=== PATIENT | female | born 2005 | race African-American/Black ===

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

== ENCOUNTER 2025-01-07 09:41 | Outpatient (CLI) | payer BC, SELFPAY ==
--- OUTSIDE RECORDS SUMMARY | 2025-01-07 08:30 | XMS_ITS | Encounter Summary ---
Author Organization [facility] Address [address] [place] [address] Care Team Providers Care Hospice Spiritual Care Coordinator Name Role Phone Martin Valle MD Primary Care Provider [phone] Reason for Visit * Reason Comments Establish Care Encounter Details Date Type Department Care Team (Late st Contact Info) Description 01/07/2025 8:30 AM CDT Office Visit [facility] Oncology and Hematology - [place] [address] [facility] [address] [place] [address] Hunter Paul MD [address] [facility] [address] [place] [address] Chronic anemia (Primary Dx) Social History Tobacco Use Types Packs/Day Years Used Date Smoking Tobacco: Never Smokeless Tobacco: Never Tobacco Cessation:Counseling Given: Not Answered Alcohol Use Standard Drinks/Week Comments Never 0 (1 standard drink = 0.6 oz pur e alcohol) Comments Unknown Sex and Gender Information Value Date Recorded Sex Assigned at Not on file Legal Sex Female 3:32 PM CDT Gender Identity Not on file Sexual Orientation Not on file documented as of this encounter Last Filed Vital Signs Vital Sign Reading Time Taken Comments Blood Pressure 127/87 01/07/2025 9:08 AM CDT Pulse 81 01/07/2025 9:08 AM CDT Temperature 37.3 C (99.1 F) 01/07/2025 9:08 AM CDT Respiratory Rate 12 01/07/2025 9:08 AM CDT Oxygen Saturation 100% 01/07/2025 9:08 AM CDT Inhaled Oxygen Concentration - - Weight 50 kg (110 lb 3.2 oz) 01/07/2025 9:08 AM CDT Height 160 cm (5' 3) 01/07/2025 9:08 AM CDT Body Mass Index 19.52 01/07/2025 9:08 AM CDT documented in this encounter Progress Notes * Hunter Paul MD - 01/07/2025 9:25 AM CDT ThisHematology-oncology consult Note Requesting Physician Primary Care Physician No primary care provider on file. Problem list There is no problem list on file for this patient. Previous TREATMENT ? Measurable Disease ? Reason for Visit Yamilet Boothe is a 19 y.o. female who was referred for consultation for iron deficiency anemia. History of present illness This is a 19-year-old -Luxembourger female who has been in good health levels and anxiety has been dealing with anemia for the last 2 years duration. She is been complaining of tiredness and fatigue. Denies any bleeding including melena and hematochezia. Her menstrual bleeding used to last 5 days and 3 days of but generally heavy. She started oral contraceptive and recently the brand was changed to stop menstrual bleeding. Her last menses was on November 17. She is also following gluten-free diet. She denies being a vegetarian and eats red meat regularly. Her last colonoscopy was in April2024 and came back unremarkable. She took oral iron for 1 month duration and discontinued about a month ago as it was not helping her. She has a family history of sickle cell disease in the aunt No other new complaints. Past Medical History No past medical history on file. Anxiety Surgical History Past Surgical History: Procedure Laterality Date HX COLONOSCOPY Medications Current Outpatient Medications Medication Sig Dispense Refill amitriptyline (ELAVIL) 10 mg tablet Take 10 mg by mouth daily at bedtime. Levonorgestrel-Ethinyl Estrad 0.15 mg-30 mcg (91) Tablet, Dose Pack, 3 Months Take 1 Tablet by mouth daily. No current facility-administered medications for this visit. Allergies Allergies Allergen Reactions Codeine Anaphylaxis and Swelling Lip swelling Immunizations: There is no immunization history on file for this patient. Family History Family History Problem Relation Name Age of Onset No Known Problems Father Diabetes Mother No Known Problems Brother No Known Problems Sister Social History Social History Tobacco Use Smoking status: Never Smokeless tobacco: Never Substance Use Topics Alcohol use: Never Review of Systems Constitutional: Patient did not mention fever; no night sweats; no anorexia; no weight loss; complain of tiredness and fatigue NEENT: Patient did not mention headache; no change in vision; no change in hearing; no sore throat;no dysphagia Respiratory: Patient did not mention shortness of breath; no pleuritic chest pain; no cough; no hemoptysis Cardiac: Patient did not mention cardiac-like chest pain; no palpitations; no orthopnea; no PND; noDOE Breasts: Patient did not mention tenderness; no masses GI: Patient did not mention abdominal pain; no nausea; no vomiting; no diarrhea; no hematochezia; no melena : Patient did not mention dysuria; no frequency; no hesitancy; no hematuria DOORMAKER: Musculosketetal: Patient did not mention bone pain; no arthralgia; no joint swelling; no myalgia; Skin: Patient did not mention pruritis; no rash; no petechiae; no ecchymoses Endocrine: Patient did not mention polydipsia; no polyuria; no unusual weight gain Neuro: Patient did not mention headache; no change in vision; no sensory changes; no muscle weakness; no confusion; no seizures Psych: Patient did not mention anxiety; no depression; Physical Exam Vitals: As per nursing note Constitutional: Well developed, well nourished, no acute distress, non-toxic appearance Teeth and gum. No signs of infection or swelling. Eyes: PERRL, conjunctiva normal HEENT: Atraumatic, external ears normal, nose normal, oropharynx moist, no pharyngeal exudates. no sinus tenderness Neck- normal range of motion, no tenderness, supple Respiratory: No respiratory distress, normal breath sounds, no rales, no wheezing Cardiovascular: Normal rate, normal rhythm, no murmurs, no gallops, no rubs GI: Soft, nondistended, normal bowel sounds, nontender, no splenomegaly, no hepatomegaly, no mass, no rebound, no guarding : No costovertebral angle tenderness Musculoskeletal: No edema, no tenderness, no deformities. Back- no tenderness Integument: Well hydrated, no rash, Digits and nails inspection normal Lymphatic: No lymphadenopathy noted Neurologic: Alert & oriented x 3, CN 2-12 normal, normal motor function, normal sensory function, no focal deficits noted Psychiatric: Speech and behavior appropriate ? labs No results found for this or any previous visit (from the past 24 hours). Labs from December 16, 2024 showed iron 34 saturation of iron 8 ferritin 8 hemoglobin 11.7 MCV 82.6 WBC 8.3 platelets 371,000 Pathology ? Imaging & Other Studies Performance Status? Assessment / Plan: ? Iron deficiency anemia. Patient is a 19-year-old -Luxembourger female who has been in good health except anxiety disorder referred to me for anemia that she has been dealing for the last couple ofyears duration. She is quite symptomatic with tiredness and fatigue. She denies any bleeding including melena and hematochezia. She used to have heavy menstrual bleeding for about 5 days duration butthe last menses was in October. She started control pills for menstrual cessation. She denies being a vegetarian. Denies any previous stomach surgeries. She took oral iron for 1 month duration but discontinued about a month ago as it was not helping her symptoms. I will repeat the labs including CBC, CMP, iron profile, soluble transferrin receptor, vitamin B12 and methylmalonic acid level. Iwill also order hemoglobin electrophoresis for sickle cell anemia. Patient gave me the history of sickle cell disease in her aunt. I will discuss results with her next week. Will decide about iron infusion at that time. I instructed her to take iron 325 mg once a day with vitamin C 500 mg daily. I have answered all the questions the patient satisfaction. Anxiety. Patient is on amitriptyline. Thank you very much for allowing me to participate in Yamilet Boothe's evaluation and management. Please feel free to contact if I can be of any further assistance in your patient???s care requiring hematology or oncology evaluation. Sincerely, ? ? Hunter Paul M.D. cell TOBACCO COUNSELING She is not a tobacco/nicotine user. Hunter Paul MD ,01/07/2025 9:58 AM ? Total time spent 60 minutes, two third of the total time spent counseling patient [id number]. CC:? documented in this encounter Plan of Treatment Upcoming Encounters Date Type Department Care Team (Late st Contact Info) Description 01/14/2025 4:30 PM CDT Telephone Check Up [facility] Oncology and Hematology - [place] [address] [facility] [address] [place] [address] Hunter Paul MD [address] [facility] [address] [place] [address] Scheduled Orders Name Type Priority Associated Diagnoses Orde r Schedule CBC WITH DIFFERENTIAL Lab Stat Chronic anemia Expected: 01/07/2025, Expires: 01/07/2026 COMPREHENSIVE METABOLIC PANEL Lab Stat Chronic anemia Expected: 01/07/2025, Expires: 01/07/2026 FERRITIN Lab Routine Chronic anemia Expected: 01/07/2025, Expires: 01/07/2026 IRON, TIBC, AND PERCENT SATURATION Lab Routine Chronic anemia Expected: 01/07/2025, Expires: 01/07/2026 TRANSFERRIN RECEPTOR TFR SOLUBLE Lab Routine Chronic anemia Expected: 01/07/2025, Expires: 01/07/2026 VITAMIN B12 AND FOLATE Lab Routine Chronic anemia Expected: 01/07/2025, Expires: 01/07/2026 MISCELLANEOUS LAB TEST Lab Routine Chronic anemia Expected: 01/07/2025, Expires: 01/07/2026 documented as of this encounter Visit Diagnoses Diagnosis Chronic anemia- Primary Anemia, unspecified documented in this encounter Care Teams Hospice Spiritual Care Coordinator Relationship Specialty Start Date End Date Martin Valle MD [address] [place] [phone] PCP - General Family Practice 01/07/25 documented as of this encounter
[2025-01-07 09:55] LABS: Hematocrit 39.7 % (37.0-47.0); Hemoglobin 12.6 g/dL (12.0-15.0); Immature Granulocyte Percent A 0.4 % (0-0.5); Lymphocytes Absolute Auto 2.20 K/mm3 (0.9-3.2); Mean Corpuscular HGB Conc 31.7 g/dl (32-36); Mean Corpuscular Hemoglobin 24.8 pg (26-34); Mean Corpuscular Volume 78.0 fl (80-100); Nucleated Red Blood Cells Absolute Auto 0.000 K/mm3 (0.0-0.012); Nucleated Red Blood Cells Perc 0.0 % (0.0-0.2); Platelet Count Result 375 k/mm3 (150-375); Red Blood Count 5.09 M/mm3 (4.2-5.4); White Blood Count 13.6 K/mm3 (4.5-10.0)
[2025-01-07 10:38] LABS: Alanine Aminotransferase 37 U/L (6-35); Albumin Level 4.4 g/dL (3.7-5.6); Alkaline Phosphatase 56 U/L (45-116); Anion Gap 10 mmol/L (4-12); Aspartate Amino Transferase 36 U/L (14-36); Bilirubin,Total 0.3 mg/dL (0.2-1.3); Blood Urea Nitrogen 6 mg/dL (8-21); Calcium 9.1 mg/dL (8.9-10.7); Carbon Dioxide 25 mmol/L (22-30); Chloride 101 mmol/L (98-107); Estimated Glomerular Filt Rate > 60; Glucose 87 mg/dL (65-110); Potassium 4.2 mmol/L (3.4-5.0); Sodium 136 mmol/L (134-143); Total Protein 7.7 g/dL (6.3-8.6)
[2025-01-07 10:55] LABS: Iron 39 ug/dL (37-170)
--- OUTSIDE RECORDS SUMMARY | 2025-01-07 10:56 | XMS_ITS | Clinical Summary ---
Author Organization [facility] Address [address] [place] [address] Care Team Providers Care Industrial Truck Operator Name Role Phone Martin Valle MD Primary Care Provider + [phone] Allergies Active Allergy Reactions Criticality Noted Date [...] 05/13/2024 Assessment & Plan (05/13/2024 2:56 PM CASH APPLICATIONS CLERK): Lm is a 19 old female with [...] consult Assessment & Plan (05/13/2024 4:17 AM CASH APPLICATIONS CLERK): Lm is a 19 old female with [...] 05/13/2024 Assessment & Plan (05/13/2024 2:53 PM CASH APPLICATIONS CLERK): Yamilet is at moderate risk for VTE due to her control usage. Plan: - Ambulate TID - Consider SCD placement if unable to ambulate Assessment & Plan (05/13/2024 4:17 AM CASH APPLICATIONS CLERK): Yamilet is at moderate risk for VTE due to her control usage. Plan: - Ambulate TID - Consider SCD placement if unable to ambulate Bloody diarrhea 05/13/2024 Iron deficiency anemia 02/02/2023 Assessment & Plan (02/02/2023 10:27 AM CASH APPLICATIONS CLERK): Yamilet is a 17 year old female [...] 02/02/2023 Assessment & Plan (02/02/2023 10:28 AM CASH APPLICATIONS CLERK): Given history of menorrhagia we performed a [...] History Growth Chart Information Age Height Weight [id number] th Percentile BMI Percentile Head Circum Head Circum Percentile Date 19 years 51.2 kg (112 lb 14 oz) 2024 19 years 161.5 cm (5' 3.58) 49.8 kg (109 lb 12.6 oz) 17.12%* 2024 19 years 49.4 kg (108 lb 14.5 oz) 2024 17 years 157.4 cm (5' 1.97) 47.8 kg (105 lb 6.1 oz) 23.78%* 2022 * [facility] (Girls, 2-20 Years) Last Filed Vital Signs Vital Sign Reading Time Taken Comments Blood Pressure 105/72 05/14/2024 11:55 AM CASH APPLICATIONS CLERK Pulse 90 05/14/2024 11:55 AM CASH APPLICATIONS CLERK Temperature 36.7 C (98.1 F) 05/14/2024 11:55 AM CASH APPLICATIONS CLERK Respiratory Rate 18 05/14/2024 11:55 AM CASH APPLICATIONS CLERK Oxygen Saturation 100% 05/14/2024 11:55 AM CASH APPLICATIONS CLERK Inhaled Oxygen Concentration - - Weight 51.2 kg (112 lb 14 oz) 05/14/2024 8:20 AM CASH APPLICATIONS CLERK Height 161.5 cm (5' 3.58) 05/13/2024 1:50 AM CS T Body Mass Index 19.63 05/13/2024 1:50 AM CASH APPLICATIONS CLERK Plan of Treatment Health Maintenance Due Date [...] 01/15/2020 Meningococcal Vaccine Completed 12/08/2022, 020 Insurance [facility] [employer] [facility] [employer] Advance Directives For more information, please contact: [phone] * Full Code (Latest Code Status on File) Date Activated Date Inactivated Comments 05/13/2024 2:14 AM 05/14/2024 4:45 PM Care Teams Industrial Truck Operator Relationship Specialty Start Date End Date Martin Valle MD [address] [place] [address] PCP - General Family Medicine 01/05/23
--- OUTSIDE RECORDS SUMMARY | 2025-01-07 10:56 | XMS_ITS | Patient Health Record ---
Author Organization [facility] Address [address] [place] [phone] Support Name Relationship Address Phone Karla Hernández Guarantor Unknown Reason For Referral No Information Medications Medication SIG (Take, Route, Frequency, Duration) Notes Start Date End Date Status ZyrTEC Allergy 10 MG Tablet take 1 tablet (10 mg) by oral route once daily Oral 1 11/14/2015 Active Flonase Allergy Relief 50 MCG/ACT Suspension inhale 1 spray (50 mcg) in each nostril by intranasal route once daily Nasal 1 11/14/2015 Active Social History Social History Additional Details Category Social Info Options Details Migrated Social History Migrated Social History Marital Status :: Single Occupation :: Student Substance Use :: No alcohol use :: Never smoker Substance Use :: No illegal drug use :: Never smoker Substance Use :: Nonsmoker :: Never smoker Substance Use :: Tobacco :: Never smoker Problems Problem Type SNOMED Code ICD Code Onset Dates Problem Status W/U Status Risk Notes Problem Seasonal allergy (520763080) Seasonal Allergies (J30.2) Active confirmed [id number] Plan Of Treatment No Information Insurance Providers Payer Name Payer Address Payer Phone Subscriber Number Group Number Insured Name Patient Relationship to Insured Coverage Start Date Coverage End Date [facility] [address] [place] [address] [id number] Jamie Boothe Other BCBS [facility] [address] [place], [place] [phone] [id number] Karla Hernández Other Medical (General) History Surgical History Surgery Date(Month/Year) *No Previous Surgical History;
--- OUTSIDE RECORDS SUMMARY | 2025-01-07 10:57 | XMS_ITS | Clinical Summary ---
Author Organization [facility] Address [address] [place] [address] Care Team Providers Care Lime Boiler Name Role Phone Martin Valle MD Primary Care Provider [phone] Allergies Active Allergy Reactions Criticality Noted Date Comments Codeine Anaphylaxis High 03/17/2024 Social History Tobacco Use Types Packs/Day Years Used Date Smoking Tobacco: Never Assessed Comments No Sex and Gender Information Value Date Recorded Sex Assigned at Not on file Legal Sex Female 4:22 PM MARKETING OFFICER Gender Identity Not on file Sexual Orientation Not on file Last Filed Vital Signs Vital Sign Reading Time Taken Comments Blood Pressure 131/89 03/17/2024 4:26 PM MARKETING OFFICER Pulse 93 03/17/2024 4:26 PM MARKETING OFFICER Temperature 36.9 C (98.4 F) 03/17/2024 4:26 PM MARKETING OFFICER Respiratory Rate 18 03/17/2024 4:26 PM MARKETING OFFICER Oxygen Saturation 100% 03/17/2024 4:26 PM MARKETING OFFICER Inhaled Oxygen Concentration - - Weight 52.9 kg (116 lb 10 oz) 03/17/2024 4:26 PM MARKETING OFFICER Height 157.5 cm (5' 2) 03/17/2024 4:26 PM MARKETING OFFICER Body Mass Index 21.33 03/17/2024 4:26 PM MARKETING OFFICER Body Mass Index Percentile 47.42% 03/17/2024 4:2 6 PM MARKETING OFFICER Growth Chart: CDC (Girls, 2- 20 Years) Plan of Treatment Health Maintenance Due Date Last Done Comments Annual Physical 2008 Meningococcal B Vaccine (1 of 2 - Standard) 2021 Hepatitis C 2023 COVID-19 Vaccine ( season) 2024 Influenza Adult (#1) 2024 DTaP, Tdap and Td Vaccines (7 - Td or Tdap) 10/15/2027 10/14/2017, 08/22/2009, 08/17/2006, Additional history exists Hepatitis B Vaccines Completed 02/16/2006, 2005, 2005 Pneumococcal Vaccine: Pediatrics (0 to 5 Years) and At-Risk Patients (6 to 49 Years) Aged Out 05/19/2006, 2005, 2005, Additional history exists No longer eligible based on patient's age to complete this topic HPV Vaccines Completed 12/08/2022, 01/15/2020 Hepatitis A Vaccines Completed 12/08/2022, 01/15/20 20 Meningococcal Vaccine Completed 12/08/2022, 020 RSV Immunizations Under 20 Months Aged Out No longer eligible based on patient's age to complete this topic Insurance [facility] Care Teams Lime Boiler Relationship Specialty Start Date End Date Martin Valle MD [address] [place] [phone] PCP - General FAMILY PRACTICE 03/17/24
--- OUTSIDE RECORDS SUMMARY | 2025-01-07 10:57 | XMS_ITS | Clinical Summary ---
Author Organization [facility] Juhi Sebastian Address [address] [place] [address] Care Team Providers Care Business Line Controller Name Role Phone Martin Valle MD Primary Care Provider Allergies Active Allergy Reactions Criticality Noted Date Comments Codeine Anaphylaxis,Swelling High 02/02/2023 Lip swelling Medications amitriptyline (ELAVIL) 10 mg tablet Take 10 mg by mouth daily at bedtime. 12/28/2024 Active Levonorgestrel-E thinyl Estrad 0.15 mg-30 mcg (91) Tablet, Dose Pack, 3 Months Take 1 Tablet by mouth daily. 11/04/2024 Active Active Problems No known active problems Encounters Date Type Department Care Team Description 01/07/2025 8:30 AM CDT Office Visit [facility] Oncology and Hematology - [place] [address] [facility] [address] [place] [address] Hunter Paul MD Chronic anemia (Primary Dx) from Last 3 Months Family History Medical History Relation Name Comments No Known Problems Brother No Known Problems Father Diabetes Mother No Known Problems Sister Relation Name Status Comments Brother Alive Father Alive Mother Alive Sister Alive Social History Tobacco Use Types Packs/Day Years [...] Mass Index 19.52 01/07/2025 9:08 AM CDT Plan of Treatment Upcoming Encounters Date Type Department Care Team (Late st Contact Info) Description 01/14/2025 4:30 PM CDT Telephone Check Up [facility] Oncology and Hematology - [place] [address] [facility] [address] [place] [address] Hunter Paul MD [address] [facility] [address] [place] [address] Health Maintenance Due Date Last Done Comments CHLAMYDIA SCREENING (ANNUAL) 11-24 YEARS 2016 HPV VACCINES (1 - 3-dose series) 2020 DTAP/TDAP/TD VACCINES (1 - Tdap) 2024 HEPATITIS B VACCINES (1 of 3 - 19+ 3-dose series) 03/21 Preventative Visit- Commercial 2024 INFLUENZA VACCINE (#1) 2024 Insurance [facility] [employer] Care Teams Business Line Controller Relationship Specialty Start Date End Date Martin Valle MD [address] [place] [phone] PCP - General Family Practice 01/07/25
[2025-01-07 11:09] LABS: Percent Iron Saturation 8 % (20-50)
[2025-01-07 11:21] LABS: Ferritin 9.36 ng/mL (6.24-137)
[2025-01-07 11:58] LABS: Vitamin B12 942.0 pg/mL (239-931)
== END 2025-01-07 09:42 | disposition home or self-care (01) ==
PROVIDERS: PCP Emergency Medicine; Visit Provider Internal Medicine Hematology & Oncology
DX: D64.9 Anemia, unspecified (principal)
CPT/HCPCS: 36415; 80053; 82607; 82728; 82746; 83540; 83550; 84238; 85025